=== PATIENT | male | born 1955 | race Hispanic/Latino ===

== ENCOUNTER 2016-04-15 21:32 | Emergency (ER) | payer SELFPAY ==
[~2016-04-15] VITALS: Ht 152.4 cm; Wt 83.0 kg
[~2016-04-15 21:32] MED LIST: ACETAMINOPHEN325 M1 PO; AKWA TEARS OIN3.5 GM BOTH EYES; ALLERGY25 M2 PO; AMANTADINE50 MG/5 ML PO; AMPICILLIN TRI500 MG PO; ARTIFICIAL TEA3.5 G3 BOTH EYES; ATARAX,VISTARIL25 MG PO; ATIVAN0.5 MG PO; ATIVAN1 MG PO; BACLOFEN10 MG PO; BACLOFEN20 MG PO; BENADRYL25 MG PO; BISAC-EVAC10 MG PR; CATAPRES-TTS 11 EACH TD; CERTA-VITE240 ML PO; COLACE100 MG PO; CORRECTOL5 M1 PO; DAILY VALUE1 EACH PO; DIOCTO50 MG/5 ML PO; DOCUSATE SODIU100 MG PO; DULCOLAX10 MG PR; DULCOLAX5 MG PO; FLEET ENEMA-AD118 ML PR; FLUOXETINE HCL20 MG PO; FUROSEMIDE20 MG PO; GLUCAGEN1 MG IM; HYDROXYZINE HCL25 MG PO; LABETALOL HCL100 MG PO; LASIX20 MG PO; LEVEMIR FL100 UNIT/1 SC; LEVEMIR100 UNIT/2 SC; LEVO-T75 MCG PO; LEVOTHYROXINE25 MCG PO; LEVOTHYROXINE75 MCG PO; LIORESAL10 MG PO; METHYLPHENIDATE10 M1 PO; METHYLPHENIDATE5 MG PO; MULTIPLE VITAM1 EAC1 PO; NOVOLOG PE100 UNITS/ SC; ONE DAILY1 EAC3 PO; QUETIAPINE FUM100 MG PO; ROXICODONE5 MG PO; SENNA8.6 MG PO; SEROQUEL12.5 MG PO; SODIUM CHLORIDE1 G1 PO; SYMMETREL GT; TEARS NATURALE1 EACH BOTH EYES; THERA1 EAC1 PO; TRIAMCINOLONE A15 GM TP; TYLENOL REGULA325 MG PO; ZYPREXA10 MG PO; ZYPREXA5 MG PO
[2016-04-15 22:42] LABS: EOSINOPHIL (%) 1.3 % (0-5); EOSINOPHIL COUNT 0.1 K/uL (0-0.3); IMMATURE GRANULOCYTE (%) 0.7 % (0.0-0.7); IMMATURE GRANULOCYTE COUNT 0.6 K/uL; LYMPHOCYTE COUNT 2.1 K/uL (1.0-2.8); MCH 31.5 PG (29.0-34.0); MCV 92.5 FL (86-99); MEAN PLAT.VOLUME 10.9 uM^3 (9.0-12.4); MONOCYTE (%) 11.4 % (3-12); NEUTROPHIL (%) 61.3 % (45-76); NEUTROPHIL COUNT 5.3 K/uL (1.8-6.4); PLATELET COUNT 175 K/uL (156-360); RBC DIS.WIDTH-SD 45.8 % (39-53); RED BLOOD COUNT 5.08 M/uL (4.00-5.50); WHITE BLOOD COUNT 8.6 K/uL (4.1-10.2)
[2016-04-15 22:43] LABS: CARBON DIOXIDE (BICARBONATE) 26.8 MEQ/L (20-31)
[2016-04-15 22:51] LABS: CHLORIDE 109 mEq/L (99-109); POTASSIUM 4.6 mEq/L (3.7-5.4); SODIUM 144 mEq/L (136-147)
[2016-04-15 22:55] LABS: ANION GAP 15 MEQ/L (2-14); TOTAL BILIRUBIN 0.4 mg/dL (0.0-1.0)
[2016-04-15 22:57] LABS: ALKALINE PHOSPHATASE 108 IU/L (3-129); GFR ESTIMATE (CALCULATED) > 59 mL/min/
[2016-04-15 22:58] LABS: UREA NITROGEN (BUN) 19 mg/dL (9-23)
[2016-04-15 22:59] LABS: DIRECT BILIRUBIN 0.1 mg/dL (0.0-0.3)
[2016-04-15 23:07] LABS: GLUCOSE 468 mg/dL (70-99)
[2016-04-15 23:58] LABS: ADD MIUA? YES; BILIRUBIN NEGATIVE; BLOOD NEGATIVE; COLOR YELLOW ((YELLOW)); GLUCOSE (STRIP) >=1000; KETONES NEGATIVE; LEUKOCYTES TRACE; NITRITE POSITIVE; PROTEIN (STRIP) NEGATIVE; SPECIFIC GRAVITY 1.039 (1.000-1.030); UROBILINOGEN 0.2 MG/DL (0.2-1.0)
[2016-04-16 00:26] LABS: EPITHELIAL CELLS RARE; MUCUS NONE SEEN; RED BLOOD CELLS 20-30 /HPF (0-5); WHITE BLOOD CELLS 0-5 /HPF (0-5)
[2016-04-16 00:27] LABS: BACTERIA 2+; CASTS NONE SEEN /LPF; CRYSTALS NONE SEEN; UCUL ADDED? NO
[2016-04-16 00:50] LABS: POINT-OF-CARE METER ID UU14100415; POINT-OF-CARE USER ID HMLKAV
[2016-04-16] MEDS ORDERED: LEVAQUIN500 MG PO (01:48)
[2016-04-16 03:45] VITALS: BP 121/69
[2016-04-16 08:41] LABS: POINT-OF-CARE METER ID UU14100415; POINT-OF-CARE USER ID HMLKAV
== END 2016-04-16 04:04 ==
LOC: EME → EDBD 21:32 → EME 21:32
PROVIDERS: Emergency Medicine
DX: N12 Tubulo-interstitial nephritis, not specified as acute or chronic (principal); E11.65 Type 2 diabetes mellitus with hyperglycemia; Z87.820 Personal history of traumatic brain injury; I10 Essential (primary) hypertension; Z79.4 Long term (current) use of insulin
CPT/HCPCS: 74176; 80048; 80076; 81003; 82009; 82803; 82948; 85025; 87040; 99281; 99285; J1956; J7030

== ENCOUNTER 2017-03-07 11:57 | Inpatient (IN) | payer SELFPAY ==
[~2017-03-07] VITALS: Ht 167.6 cm; Wt 86.6 kg
[~2017-03-07 11:57] MED LIST changes: +LEVAQUIN500 MG PO; +ZYPREXA2.5 MG PO; -ZYPREXA5 MG PO
[2017-03-07 12:36] LABS: BASOPHIL (%) 0.5 % (0-1); BASOPHIL COUNT 0.1 K/uL (0-0.1); EOSINOPHIL (%) 0.1 % (0-5); HEMATOCRIT 54.7 % (38.0-50.0); HEMOGLOBIN 18.3 G/DL (12.5-16.6); IMMATURE GRANULOCYTE (%) 0.5 % (0.0-0.7); LYMPHOCYTE (%) 24.1 % (15-42); LYMPHOCYTE COUNT 2.2 K/uL (1.0-2.8); MCH 32.3 PG (29.0-34.0); MCHC 33.5 G/DL (30.0-36.0); MCV 96.5 FL (86-99); MONOCYTE (%) 12.3 % (3-12); MONOCYTE COUNT 1.1 K/uL (0-0.8); NEUTROPHIL (%) 62.5 % (45-76); NEUTROPHIL COUNT 5.7 K/uL (1.8-6.4); PLATELET COUNT 160 K/uL (156-360); RBC DIS.WIDTH-CV 14.4 % (11.8-14.6); RBC DIS.WIDTH-SD 51.4 % (39-53); RED BLOOD COUNT 5.67 M/uL (4.00-5.50); WHITE BLOOD COUNT 9.1 K/uL (4.1-10.2)
[2017-03-07 12:51] LABS: ALBUMIN 3.6 g/dL (3.2-4.8); CHLORIDE 114 mEq/L (99-109); POTASSIUM 4.5 mEq/L (3.7-5.4); SODIUM 150 mEq/L (136-147)
[2017-03-07 12:53] LABS: TOTAL PROTEIN 8.5 g/dL (6.4-8.3)
[2017-03-07 12:54] LABS: GLUCOSE 495 mg/dL (70-99)
[2017-03-07 12:55] LABS: TOTAL BILIRUBIN 0.8 mg/dL (0.0-1.0)
[2017-03-07 12:56] LABS: ALKALINE PHOSPHATASE 78 IU/L (3-129)
[2017-03-07 12:57] LABS: CREATININE 1.4 mg/dL (0.6-1.3); GFR ESTIMATE (CALCULATED) 54 mL/min/ (58.99-99999)
[2017-03-07 12:58] LABS: AST (GOT) 30 IU/L (2-34); UREA NITROGEN (BUN) 31 mg/dL (9-23)
[2017-03-07 13:00] LABS: ALT (GPT) 39 IU/L (3-49)
[2017-03-07 13:01] LABS: APPEARANCE CLOUDY ((CLEAR)); BILIRUBIN NEGATIVE; BLOOD LARGE; COLOR AMBER ((YELLOW)); GLUCOSE (STRIP) >=500; KETONES 20; LEUKOCYTES SMALL; NITRITE NEGATIVE; PROTEIN (STRIP) 100; SPECIFIC GRAVITY 1.039 (1.000-1.030); UROBILINOGEN 0.2 MG/DL (0.2-1.0)
[2017-03-07 13:05] LABS: TROP-I INTERPRETATION NEGATIVE; TROPONIN-I < 0.01 ng/mL (0.0-0.30)
[2017-03-07 13:19] LABS: BACTERIA 1+ /HPF; EPITHELIAL CELLS RARE /HPF; HYALINE CASTS 0-5 /LPF; MUCUS TRACE /LPF; RED BLOOD CELLS 15-20 /HPF (0-5); WHITE BLOOD CELLS TNTC /HPF (0-5)
[2017-03-07 14:21] LABS: CHLORIDE 115 mEq/L (99-109); POTASSIUM 4.6 mEq/L (3.7-5.4); SODIUM 151 mEq/L (136-147)
[2017-03-07 14:24] LABS: GLUCOSE 449 mg/dL (70-99)
[2017-03-07 14:27] LABS: CREATININE 1.2 mg/dL (0.6-1.3); GFR ESTIMATE (CALCULATED) > 59 mL/min/ (58.99-99999)
[2017-03-07 14:28] LABS: UREA NITROGEN (BUN) 30 mg/dL (9-23)
[2017-03-07] MEDS ORDERED: ROCEPHIN1 GM/50 ML IV (14:31)
[2017-03-07] MEDS ORDERED: METFORMIN HCL850 MG PO (18:40)
[2017-03-07] MEDS ORDERED: BISA-LAX5 MG PO (18:45)
[2017-03-07] MEDS ORDERED: SENNA8.6 MG PO (18:46)
[2017-03-07] MEDS ORDERED: THERA1 EAC2 PO (18:48)
[2017-03-07] MEDS ORDERED: DEPAKOTE SPRIN125 MG PO (18:54)
[2017-03-07] MEDS ORDERED: ARTIFICIAL TEAR15 M1 BOTH EYES (18:57)
[2017-03-07] MEDS ORDERED: DIOCTO50 MG/5 ML PO (18:59)
[2017-03-07] MEDS ORDERED: ATHENOL325 MG PO (19:01)
[2017-03-08 00:23] VITALS: BP 114/78
[2017-03-08 07:19] VITALS: BP 120/71
[2017-03-08 07:35] LABS: CHLORIDE 119 MEQ/L (99-109); CREATININE 0.9 MG/DL (0.6-1.3); GFR ESTIMATE (CALCULATED) > 59 mL/min/ (58.99-99999); GLUCOSE 361 mg/dL (70-99); SODIUM 154 MEQ/L (136-147); UREA NITROGEN (BUN) 27 mg/dL (9-23)
[2017-03-08 08:01] LABS: HEMATOCRIT 49.1 % (38.0-50.0); MCH 32.2 PG (29.0-34.0); MCHC 32.2 G/DL (30.0-36.0); MCV 100.2 FL (86-99); RBC DIS.WIDTH-CV 14.8 % (11.8-14.6); RBC DIS.WIDTH-SD 54.6 % (39-53); WHITE BLOOD COUNT 11.1 K/uL (4.1-10.2)
[2017-03-08 08:13] LABS: HEMOGLOBIN 15.8 G/DL (12.5-16.6)
[2017-03-08 08:48] LABS: PLAT.SUFFICIENCY DECREASED
[2017-03-08 08:49] LABS: PLATELET COUNT 105 K/uL (156-360)
[2017-03-08 15:24] VITALS: BP 139/67
[2017-03-08 15:32] LABS: CHLORIDE 124 MEQ/L (99-109); CREATININE 0.9 MG/DL (0.6-1.3); GFR ESTIMATE (CALCULATED) > 59 mL/min/ (58.99-99999); GLUCOSE 254 mg/dL (70-99); SODIUM 160 MEQ/L (136-147); UREA NITROGEN (BUN) 25 mg/dL (9-23)
[2017-03-09 00:45] VITALS: BP 122/67
[2017-03-09 07:19] VITALS: BP 120/76
[2017-03-09 10:06] LABS: HEMATOCRIT 43.1 % (38.0-50.0); MCH 32.9 PG (29.0-34.0); MCHC 32.5 G/DL (30.0-36.0); MCV 101.2 FL (86-99); PLATELET COUNT 87 K/uL (156-360); RBC DIS.WIDTH-CV 14.9 % (11.8-14.6); RBC DIS.WIDTH-SD 55.8 % (39-53); RED BLOOD COUNT 4.26 M/uL (4.00-5.50); WHITE BLOOD COUNT 7.9 K/uL (4.1-10.2)
[2017-03-09 10:36] LABS: CHLORIDE 121 MEQ/L (99-109); CREATININE 0.8 MG/DL (0.6-1.3); GFR ESTIMATE (CALCULATED) > 59 mL/min/ (58.99-99999); GLUCOSE 261 mg/dL (70-99); POTASSIUM 3.6 MEQ/L (3.7-5.4); SODIUM 154 MEQ/L (136-147); UREA NITROGEN (BUN) 21 mg/dL (9-23)
[2017-03-09 15:14] VITALS: BP 111/63
[2017-03-09 21:30] VITALS: BP 104/65
[2017-03-09 23:38] VITALS: BP 101/59
[2017-03-10 06:25] LABS: HEMOGLOBIN 12.7 G/DL (12.5-16.6); MCH 32.5 PG (29.0-34.0); MCHC 32.6 G/DL (30.0-36.0); MCV 99.7 FL (86-99); PLATELET COUNT 81 K/uL (156-360); RBC DIS.WIDTH-CV 14.6 % (11.8-14.6); RBC DIS.WIDTH-SD 53.7 % (39-53); RED BLOOD COUNT 3.91 M/uL (4.00-5.50)
[2017-03-10 06:47] LABS: CHLORIDE 120 MEQ/L (99-109); CREATININE 0.7 MG/DL (0.6-1.3); GFR ESTIMATE (CALCULATED) > 59 mL/min/ (58.99-99999); GLUCOSE 167 mg/dL (70-99); POTASSIUM 3.3 MEQ/L (3.7-5.4); SODIUM 155 MEQ/L (136-147); UREA NITROGEN (BUN) 15 mg/dL (9-23)
[2017-03-10 07:46] VITALS: BP 113/65
[2017-03-10 16:14] VITALS: BP 123/71
[2017-03-10 23:50] VITALS: BP 158/72
[2017-03-11 06:45] LABS: BASOPHIL (%) 0.6 % (0-1); EOSINOPHIL (%) 2.8 % (0-5); EOSINOPHIL COUNT 0.2 K/uL (0-0.3); HEMATOCRIT 38.4 % (38.0-50.0); HEMOGLOBIN 12.7 G/DL (12.5-16.6); LYMPHOCYTE (%) 37.1 % (15-42); LYMPHOCYTE COUNT 2.6 K/uL (1.0-2.8); MCH 31.8 PG (29.0-34.0); MCHC 33.1 G/DL (30.0-36.0); MONOCYTE (%) 13.6 % (3-12); NEUTROPHIL (%) 44.9 % (45-76); NEUTROPHIL COUNT 3.2 K/uL (1.8-6.4); PLATELET COUNT 91 K/uL (156-360); RBC DIS.WIDTH-SD 49.5 % (39-53); WHITE BLOOD COUNT 7.1 K/uL (4.1-10.2)
[2017-03-11 07:09] LABS: CHLORIDE 114 MEQ/L (99-109); CREATININE 0.6 MG/DL (0.6-1.3); GFR ESTIMATE (CALCULATED) > 59 mL/min/ (58.99-99999); GLUCOSE 126 mg/dL (70-99); POTASSIUM 3.3 MEQ/L (3.7-5.4); SODIUM 149 MEQ/L (136-147); UREA NITROGEN (BUN) 11 mg/dL (9-23)
[2017-03-11 07:42] VITALS: BP 106/67
[2017-03-11 16:13] VITALS: BP 121/70
[2017-03-11 23:29] VITALS: BP 141/67
[2017-03-12 06:58] VITALS: BP 135/71
[2017-03-12 07:34] LABS: CHLORIDE 105 MEQ/L (99-109); CREATININE 0.6 MG/DL (0.6-1.3); GFR ESTIMATE (CALCULATED) > 59 mL/min/ (58.99-99999); GLUCOSE 185 mg/dL (70-99); POTASSIUM 3.3 MEQ/L (3.7-5.4); UREA NITROGEN (BUN) 9 mg/dL (9-23)
[2017-03-12 07:35] LABS: SODIUM 138 MEQ/L (136-147)
[2017-03-12 15:10] VITALS: BP 112/71
[2017-03-12 23:39] VITALS: BP 136/78
[2017-03-13 06:45] LABS: HEMATOCRIT 41.5 % (38.0-50.0); HEMOGLOBIN 14.1 G/DL (12.5-16.6); MCH 31.8 PG (29.0-34.0); MCV 93.5 FL (86-99); PLATELET COUNT 106 K/uL (156-360); RBC DIS.WIDTH-CV 13.5 % (11.8-14.6); RBC DIS.WIDTH-SD 45.4 % (39-53); RED BLOOD COUNT 4.44 M/uL (4.00-5.50)
[2017-03-13 07:00] LABS: CHLORIDE 106 MEQ/L (99-109); POTASSIUM 3.6 MEQ/L (3.7-5.4); SODIUM 140 MEQ/L (136-147)
[2017-03-13 07:18] LABS: CREATININE 0.6 MG/DL (0.6-1.3); GFR ESTIMATE (CALCULATED) > 59 mL/min/ (58.99-99999); GLUCOSE 224 mg/dL (70-99); UREA NITROGEN (BUN) 6 mg/dL (9-23)
[2017-03-13 07:47] VITALS: BP 117/78
[2017-03-13 15:48] VITALS: BP 120/75
[2017-03-14 00:08] VITALS: BP 128/71
[2017-03-14 07:07] LABS: HEMATOCRIT 42.6 % (38.0-50.0); HEMOGLOBIN 14.4 G/DL (12.5-16.6); MCH 31.5 PG (29.0-34.0); MCHC 33.8 G/DL (30.0-36.0); MCV 93.2 FL (86-99); NRBC (%) 0.2 /100 WBC (0-0); RBC DIS.WIDTH-CV 13.9 % (11.8-14.6); RBC DIS.WIDTH-SD 46.6 % (39-53); RED BLOOD COUNT 4.57 M/uL (4.00-5.50); WHITE BLOOD COUNT 8.4 K/uL (4.1-10.2)
[2017-03-14 07:15] LABS: PLATELET COUNT 160 K/uL (156-360)
[2017-03-14 07:21] VITALS: BP 120/78
[2017-03-14 07:26] LABS: Estimated Average Glucose 200 mg/dL (70-123); HEMOGLOBIN A1c (GLYCOHEMOGLOB) 8.6 % HGB (Below 5.7); INTER. NORMALIZED RATIO 1.2
[2017-03-14 07:38] LABS: CHLORIDE 104 MEQ/L (99-109); CREATININE 0.6 MG/DL (0.6-1.3); GFR ESTIMATE (CALCULATED) > 59 mL/min/ (58.99-99999); GLUCOSE 200 mg/dL (70-99); POTASSIUM 3.9 MEQ/L (3.7-5.4); SODIUM 140 MEQ/L (136-147); UREA NITROGEN (BUN) 9 mg/dL (9-23)
[2017-03-14 15:59] VITALS: BP 124/72
[2017-03-14 23:49] VITALS: BP 139/83
[2017-03-15 06:49] LABS: HEMATOCRIT 42.3 % (38.0-50.0); HEMOGLOBIN 14.1 G/DL (12.5-16.6); MCH 31.7 PG (29.0-34.0); MCHC 33.3 G/DL (30.0-36.0); MCV 95.1 FL (86-99); NRBC (%) 0.3 /100 WBC (0-0); PLATELET COUNT 180 K/uL (156-360); RBC DIS.WIDTH-CV 14.3 % (11.8-14.6); RBC DIS.WIDTH-SD 48.3 % (39-53); RED BLOOD COUNT 4.45 M/uL (4.00-5.50); WHITE BLOOD COUNT 8.7 K/uL (4.1-10.2)
[2017-03-15 07:16] LABS: CHLORIDE 102 MEQ/L (99-109); CREATININE 0.5 MG/DL (0.6-1.3); GFR ESTIMATE (CALCULATED) > 59 mL/min/ (58.99-99999); GLUCOSE 265 mg/dL (70-99); SODIUM 138 MEQ/L (136-147); UREA NITROGEN (BUN) 12 mg/dL (9-23)
[2017-03-15 07:24] VITALS: BP 110/62
[2017-03-15 15:18] VITALS: BP 108/70
[2017-03-15 23:38] VITALS: BP 118/69
[2017-03-16 06:58] LABS: CHLORIDE 101 MEQ/L (99-109); CREATININE 0.6 MG/DL (0.6-1.3); GFR ESTIMATE (CALCULATED) > 59 mL/min/ (58.99-99999); GLUCOSE 259 mg/dL (70-99); POTASSIUM 4.2 MEQ/L (3.7-5.4); SODIUM 136 MEQ/L (136-147); UREA NITROGEN (BUN) 12 mg/dL (9-23)
[2017-03-16 07:06] VITALS: BP 105/60
[2017-03-16 07:16] LABS: HEMATOCRIT 41.5 % (38.0-50.0); HEMOGLOBIN 14.4 G/DL (12.5-16.6); MCH 33.3 PG (29.0-34.0); MCHC 34.7 G/DL (30.0-36.0); MCV 96.1 FL (86-99); NRBC (%) 0.3 /100 WBC (0-0); PLATELET COUNT 170 K/uL (156-360); RBC DIS.WIDTH-CV 14.3 % (11.8-14.6); RBC DIS.WIDTH-SD 49.3 % (39-53); RED BLOOD COUNT 4.32 M/uL (4.00-5.50); WHITE BLOOD COUNT 7.8 K/uL (4.1-10.2)
[2017-03-16 15:06] VITALS: BP 114/69
[2017-03-17 00:22] VITALS: BP 121/69
[2017-03-17 06:54] LABS: HEMATOCRIT 39.7 % (38.0-50.0); HEMOGLOBIN 13.5 G/DL (12.5-16.6); MCV 94.1 FL (86-99); PLATELET COUNT 219 K/uL (156-360); RBC DIS.WIDTH-CV 13.8 % (11.8-14.6); RBC DIS.WIDTH-SD 46.6 % (39-53); RED BLOOD COUNT 4.22 M/uL (4.00-5.50); WHITE BLOOD COUNT 7.6 K/uL (4.1-10.2)
[2017-03-17 07:13] LABS: ALBUMIN 2.7 G/DL (3.2-4.8); ALKALINE PHOSPHATASE 95 IU/L (3-129); ALT (GPT) 3 IU/L (3-49); AST (GOT) 13 IU/L (2-34); CHLORIDE 97 MEQ/L (99-109); CREATININE 0.5 MG/DL (0.6-1.3); GFR ESTIMATE (CALCULATED) > 59 mL/min/ (58.99-99999); GLUCOSE 243 mg/dL (70-99); SODIUM 133 MEQ/L (136-147); TOTAL BILIRUBIN 0.4 MG/DL (0.0-1.0); TOTAL PROTEIN 5.5 G/DL (6.4-8.3); UREA NITROGEN (BUN) 12 mg/dL (9-23)
[2017-03-17 07:39] VITALS: BP 114/65
[2017-03-17 08:01] LABS: ABS NEUTROPHIL COUNT 4.3; ATYPICAL LYMPHOCYTE 7.7 %; EOSINOPHIL ABS CT 0.1; EOSINOPHILS 1.9 % (0-5.0); LYMPHOCYTES 21.1 % (15.0-45.0); MONOCYTES 10.6 % (0-9.0); MYELOCYTES 1.9 %; PLAT.SUFFICIENCY ADEQUATE; SEG.NEUTROPHILS 56.8 % (46.0-76.0)
[2017-03-17 16:15] VITALS: BP 97/64
[2017-03-17 23:45] VITALS: BP 127/72
[2017-03-18 06:33] LABS: ALBUMIN 3.1 G/DL (3.2-4.8); ALKALINE PHOSPHATASE 92 IU/L (3-129); ALT (GPT) 5 IU/L (3-49); AST (GOT) 16 IU/L (2-34); CHLORIDE 93 MEQ/L (99-109); CREATININE 0.5 MG/DL (0.6-1.3); GFR ESTIMATE (CALCULATED) > 59 mL/min/ (58.99-99999); GLUCOSE 256 mg/dL (70-99); POTASSIUM 4.5 MEQ/L (3.7-5.4); SODIUM 127 MEQ/L (136-147); TOTAL BILIRUBIN 0.4 MG/DL (0.0-1.0); UREA NITROGEN (BUN) 11 mg/dL (9-23)
[2017-03-18 06:38] LABS: TOTAL PROTEIN 6.6 G/DL (6.4-8.3)
[2017-03-18 06:48] VITALS: BP 158/84
[2017-03-18 08:32] LABS: BASOPHIL COUNT 0.1 K/uL (0-0.1); EOSINOPHIL (%) 0.9 % (0-5); EOSINOPHIL COUNT 0.1 K/uL (0-0.3); HEMATOCRIT 43.5 % (38.0-50.0); IMMATURE GRANULOCYTE (%) 3.5 % (0.0-0.7); LYMPHOCYTE (%) 19.6 % (15-42); LYMPHOCYTE COUNT 1.7 K/uL (1.0-2.8); MCH 32.1 PG (29.0-34.0); MCHC 34.5 G/DL (30.0-36.0); MCV 92.9 FL (86-99); MONOCYTE (%) 14.9 % (3-12); MONOCYTE COUNT 1.3 K/uL (0-0.8); NEUTROPHIL (%) 60.1 % (45-76); NEUTROPHIL COUNT 5.3 K/uL (1.8-6.4); PLATELET COUNT 244 K/uL (156-360); RBC DIS.WIDTH-CV 13.5 % (11.8-14.6); RBC DIS.WIDTH-SD 45.5 % (39-53); RED BLOOD COUNT 4.68 M/uL (4.00-5.50); WHITE BLOOD COUNT 8.8 K/uL (4.1-10.2)
[2017-03-18 15:14] VITALS: BP 153/81
[2017-03-19 00:09] VITALS: BP 106/73
[2017-03-19 06:49] LABS: BASOPHIL (%) 1.1 % (0-1); BASOPHIL COUNT 0.1 K/uL (0-0.1); EOSINOPHIL COUNT 0.1 K/uL (0-0.3); HEMATOCRIT 42.4 % (38.0-50.0); HEMOGLOBIN 14.6 G/DL (12.5-16.6); IMMATURE GRANULOCYTE (%) 3.8 % (0.0-0.7); LYMPHOCYTE (%) 22.2 % (15-42); LYMPHOCYTE COUNT 1.8 K/uL (1.0-2.8); MCH 32.8 PG (29.0-34.0); MCHC 34.4 G/DL (30.0-36.0); MCV 95.3 FL (86-99); MONOCYTE (%) 14.9 % (3-12); MONOCYTE COUNT 1.2 K/uL (0-0.8); NEUTROPHIL COUNT 4.6 K/uL (1.8-6.4); PLATELET COUNT 233 K/uL (156-360); RBC DIS.WIDTH-CV 13.8 % (11.8-14.6); RBC DIS.WIDTH-SD 47.4 % (39-53); RED BLOOD COUNT 4.45 M/uL (4.00-5.50); WHITE BLOOD COUNT 8.1 K/uL (4.1-10.2)
[2017-03-19 06:57] VITALS: BP 121/75
[2017-03-19 07:14] LABS: ALBUMIN 2.9 G/DL (3.2-4.8); ALKALINE PHOSPHATASE 102 IU/L (3-129); ALT (GPT) 5 IU/L (3-49); AST (GOT) 13 IU/L (2-34); CHLORIDE 97 MEQ/L (99-109); CREATININE 0.5 MG/DL (0.6-1.3); GFR ESTIMATE (CALCULATED) > 59 mL/min/ (58.99-99999); GLUCOSE 269 mg/dL (70-99); POTASSIUM 4.2 MEQ/L (3.7-5.4); SODIUM 131 MEQ/L (136-147); TOTAL BILIRUBIN 0.4 MG/DL (0.0-1.0); TOTAL PROTEIN 6.4 G/DL (6.4-8.3); UREA NITROGEN (BUN) 11 mg/dL (9-23)
[2017-03-19 15:09] VITALS: BP 134/79
[2017-03-19 23:34] VITALS: BP 168/85
[2017-03-20 06:18] LABS: BASOPHIL (%) 0.8 % (0-1); BASOPHIL COUNT 0.1 K/uL (0-0.1); EOSINOPHIL COUNT 0.1 K/uL (0-0.3); HEMATOCRIT 41.6 % (38.0-50.0); HEMOGLOBIN 14.2 G/DL (12.5-16.6); IMMATURE GRANULOCYTE (%) 4.4 % (0.0-0.7); LYMPHOCYTE (%) 22.2 % (15-42); LYMPHOCYTE COUNT 1.9 K/uL (1.0-2.8); MCH 31.9 PG (29.0-34.0); MCHC 34.1 G/DL (30.0-36.0); MCV 93.5 FL (86-99); MONOCYTE (%) 12.8 % (3-12); MONOCYTE COUNT 1.1 K/uL (0-0.8); NEUTROPHIL (%) 58.8 % (45-76); NEUTROPHIL COUNT 4.9 K/uL (1.8-6.4); PLATELET COUNT 255 K/uL (156-360); RBC DIS.WIDTH-CV 13.4 % (11.8-14.6); RBC DIS.WIDTH-SD 45.7 % (39-53); RED BLOOD COUNT 4.45 M/uL (4.00-5.50); WHITE BLOOD COUNT 8.4 K/uL (4.1-10.2)
[2017-03-20 06:43] LABS: CHLORIDE 99 MEQ/L (99-109); CREATININE 0.5 MG/DL (0.6-1.3); GFR ESTIMATE (CALCULATED) > 59 mL/min/ (58.99-99999); GLUCOSE 224 mg/dL (70-99); POTASSIUM 4.2 MEQ/L (3.7-5.4); SODIUM 134 MEQ/L (136-147); UREA NITROGEN (BUN) 11 mg/dL (9-23)
[2017-03-20 07:57] VITALS: BP 158/78
[2017-03-20 16:07] VITALS: BP 136/82
[2017-03-20 23:45] VITALS: BP 142/92
[2017-03-21 06:56] VITALS: BP 133/82
[2017-03-21 15:08] VITALS: BP 129/78
[2017-03-22 00:13] VITALS: BP 149/91
[2017-03-22 07:37] LABS: CHLORIDE 94 MEQ/L (99-109); CREATININE 0.6 MG/DL (0.6-1.3); GFR ESTIMATE (CALCULATED) > 59 mL/min/ (58.99-99999); GLUCOSE 300 mg/dL (70-99); UREA NITROGEN (BUN) 12 mg/dL (9-23)
[2017-03-22 07:44] LABS: SODIUM 127 MEQ/L (136-147)
[2017-03-22 07:49] VITALS: BP 152/101
[2017-03-22 08:06] LABS: BASOPHIL (%) 0.7 % (0-1); BASOPHIL COUNT 0.1 K/uL (0-0.1); EOSINOPHIL (%) 0.7 % (0-5); EOSINOPHIL COUNT 0.1 K/uL (0-0.3); HEMATOCRIT 47.3 % (38.0-50.0); IMMATURE GRANULOCYTE (%) 2.7 % (0.0-0.7); LYMPHOCYTE (%) 17.7 % (15-42); LYMPHOCYTE COUNT 1.8 K/uL (1.0-2.8); MCH 33.2 PG (29.0-34.0); MCHC 35.5 G/DL (30.0-36.0); MCV 93.5 FL (86-99); MONOCYTE (%) 16.8 % (3-12); MONOCYTE COUNT 1.7 K/uL (0-0.8); NEUTROPHIL (%) 61.4 % (45-76); NEUTROPHIL COUNT 6.2 K/uL (1.8-6.4); NRBC (%) 0.2 /100 WBC (0-0); PLATELET COUNT 253 K/uL (156-360); RBC DIS.WIDTH-CV 13.7 % (11.8-14.6); RBC DIS.WIDTH-SD 46.1 % (39-53); RED BLOOD COUNT 5.06 M/uL (4.00-5.50); WHITE BLOOD COUNT 10.1 K/uL (4.1-10.2)
[2017-03-22 08:07] LABS: HEMOGLOBIN 16.8 G/DL (12.5-16.6)
[2017-03-22 12:31] VITALS: BP 148/88
[2017-03-22 16:07] VITALS: BP 120/62
[2017-03-23 00:38] VITALS: BP 121/84
[2017-03-23 07:39] VITALS: BP 127/82
[2017-03-23 12:50] LABS: CHLORIDE 93 MEQ/L (99-109); CREATININE 0.5 MG/DL (0.6-1.3); GFR ESTIMATE (CALCULATED) > 59 mL/min/ (58.99-99999); GLUCOSE 314 mg/dL (70-99); POTASSIUM 4.5 MEQ/L (3.7-5.4); SODIUM 126 MEQ/L (136-147); UREA NITROGEN (BUN) 14 mg/dL (9-23)
[2017-03-23 16:07] VITALS: BP 110/75
[2017-03-24 00:13] VITALS: BP 102/70
[2017-03-24 07:06] VITALS: BP 104/72
== END 2017-03-24 14:00 | DRG 871 ==
LOC: EME 11:57 → EDOF 20:02 → 5SOUTH 20:02 → ENRESERV 20:10 → 5SOUTH 23:27
PROVIDERS: Emergency Medicine; Family Medicine; Hospitalist; Internal Medicine; Physician Assistant Medical; Surgery
DX: A41.9 Sepsis, unspecified organism (principal); N39.0 Urinary tract infection, site not specified; J96.01 Acute respiratory failure with hypoxia; J69.0 Pneumonitis due to inhalation of food and vomit; G93.41 Metabolic encephalopathy; E22.2 Syndrome of inappropriate secretion of antidiuretic hormone; E86.0 Dehydration; E87.2 Acidosis; E87.6 Hypokalemia; Z66 Do not resuscitate; E87.1 Hypo-osmolality and hyponatremia; B96.1 Klebsiella pneumoniae [K. pneumoniae] as the cause of diseases classified elsewhere; D69.59 Other secondary thrombocytopenia; E03.9 Hypothyroidism, unspecified; E11.65 Type 2 diabetes mellitus with hyperglycemia; G40.909 Epilepsy, unspecified, not intractable, without status epilepticus; G89.29 Other chronic pain; M54.9 Dorsalgia, unspecified; G91.1 Obstructive hydrocephalus; I10 Essential (primary) hypertension; I25.10 Atherosclerotic heart disease of native coronary artery without angina pectoris; K59.00 Constipation, unspecified; E66.9 Obesity, unspecified; R13.10 Dysphagia, unspecified; Z68.30 Body mass index [BMI] 30.0-30.9, adult; Z74.01 Bed confinement status; Z79.4 Long term (current) use of insulin; Z87.820 Personal history of traumatic brain injury; Z98.2 Presence of cerebrospinal fluid drainage device
CPT/HCPCS: 70450; 71010; 71250; 74230; 80048; 80048 91; 80053; 80202; 81003; 82140; 82948; 83036; 83605; 83735; 83930; 83935; 84484; 85025; 85025 91; 85027; 85610; 87040; 87077; 87086; 87186; 87449; 87493; 87801; 92526 GN; 92610 GN; 92611 GN; 93005; 94640; 94640 76; 94760; 94799; 99281; 99285; J0690; J0692; J0696; J1644; J1815; J3370; J3480; J7030; J7042; J7050; J7070; J7644; S0028